=== PATIENT | male | born 2000 | race Caucasian/White ===

== ENCOUNTER 2023-09-03 16:50 | Outpatient (CLI) | payer BC, SELFPAY ==
[2023-09-03 17:37] LABS: Influenza A QL RT-PCR Positive (Negative); Influenza B QL RT-PCR Negative (Negative); RSV RNA, RT-PCR Negative (Negative); SARS-CoV-2 RNA PCR Negative (Negative)
== END 2023-09-03 16:51 | disposition home or self-care (01) ==
LOC: ANHLAB 16:51
PROVIDERS: PCP Family Medicine; Visit Provider Physician Assistant
DX: R50.9 Fever, unspecified (principal); Z20.822 Contact with and (suspected) exposure to COVID-19
CPT/HCPCS: 87637

== ENCOUNTER 2023-10-10 11:16 | Emergency (ER) | payer BC, SELFPAY ==
--- NOTE | ~2023-10-10 | CT_ITS ---
CT of the Pelvis: Indication: Perirectal abscess Technique: 2.5 mm axial scans were obtained through the pelvis following intravenous administration of 100 cc of Omnipaque 350. Dose reduction technique was used on this scan by utilizing automated exp osure control and iterative reconstruction technique. The dose-length product (DLP) was 1140.44 mGy-c m. Findings: Visualized bowel loops are unremarkable. No ascites. Urinary bladder unremarkable. Prostate gland and seminal vesicles are unremarkable. No lymphadenopathy seen. There is a left-sided perirectal/perianal abscess measuring approximately 4.4 x 2.8 x 3.2 cm. Impression: 4.4 x 2.8 x 3.2 cm left-sided perirectal/perianal abscess. Reviewed, dictated and finalized at [facility]. [employer] Impression: 4.4 x 2.8 x 3.2 cm left-sided perirectal/perianal abscess.
[2023-10-10 13:08] VITALS: BP 136/74; PULSE 95; RESP 16; TEMP 37; O2SAT 98
[2023-10-10 13:09] VITALS: BP 136/74; PULSE 103; RESP 20; O2SAT 98
[2023-10-10 13:35] LABS: Basophils Percent Auto 0.3 % (0.2-1.2); Eosinophils Absolute Auto 0.2 K/mm3 (0-0.3); Eosinophils Percent Auto 1.9 % (0-4.4); Hematocrit 40.2 % (42.0-52.0); Hemoglobin 13.4 g/dL (14.0-18.0); Immature Granulocyte Absolute 0.02 K/mm3 (0.00-0.031); Immature Granulocyte Percent A 0.2 % (0-0.5); Lymphocytes Absolute Auto 1.29 K/mm3 (0.9-3.2); Lymphocytes Percent Auto 12.9 % (18.3-44.2); Mean Corpuscular HGB Conc 33.3 g/dl (32-36); Mean Corpuscular Hemoglobin 29.6 pg (26-34); Mean Corpuscular Volume 88.9 fl (80-100); Mean Platelet Volume 9.9 fl (7.4-10.4); Monocytes Absolute Auto 1.2 K/mm3 (0.1-0.6); Monocytes Percent Auto 11.8 % (2.6-8.5); Neutrophils Absolute Auto 7.3 K/mm3 (1.3-6.7); Neutrophils Percent Auto 72.9 % (45.5-73.1); Platelet Count Result 282 k/mm3 (150-375); Red Blood Count 4.52 M/mm3 (4.6-6.20); Red Cell Distribution Width 11.3 % (11.5-14.5)
[2023-10-10 13:48] LABS: Alanine Aminotransferase 49 U/L (6-50); Albumin Level 4.3 g/dL (3.5-5.1); Alkaline Phosphatase 82 U/L (38-126); Anion Gap 9 mmol/L (8-16); Aspartate Amino Transferase 32 U/L (17-59); Bilirubin,Total 0.7 mg/dL (0.2-1.3); Blood Urea Nitrogen 15 mg/dL (9-20); Calcium 9.8 mg/dL (8.4-10.2); Carbon Dioxide 27 mmol/L (22-30); Chloride 103 mmol/L (98-107); Estimated CRCL calculation 192 ml/min; Estimated Glomerular Filt Rate > 60; Glucose 97 mg/dL (65-110); Potassium 3.9 mmol/L (3.4-5.0); Sodium 139 mmol/L (137-145)
--- NOTE | 2023-10-10 14:12 | PC.NURSE ---
Pt to CT scan via stretcher at this time.
--- NOTE | 2023-10-10 14:35 | ED.GENADULT ---
HPI - General Adult General Chief complaint: Skin/Abscess/Foreign Body Stated complaint: hemorrhoid internal Time Seen by Provider: 10/10/23 12:56 History of Present Illness HPI narrative: Patient is a 22-year-old male who presents ER with concerns for hemorrhoid or abscess. Began noticing pain after lifting heavy bag of concrete 9 days ago. It has since worsened. The discomfort moving to the left buttock and the perineal area. No drainage. No fevers or chills or sweats. No trauma to the area. His PCPs office initially thought he might have an external hemorrhoid and he been applying preparation H without improvement. Pain worsens when he sits down. Related Data Allergies Allergy/AdvReac Type Severity Reaction Status Date / Time magnesium Allergy Intermediate closes me Verified 10/06/23 13:54 up Review of Systems Review of Systems: All systems reviewed & are unremarkable except as noted in HPI and below Constitutional: Constitutional: Reports no additional constitutional complaints Cardiovascular: Cardiovascular: Reports no additional cardiovascular complaints Respiratory: Respiratory: Reports no additional respiratory complaints Gastrointestinal: Gastrointestinal: Reports no additional gastrointestinal complaints Genitourinary: Genitourinary: Reports no additional male genitourinary complaints [facility] Past Medical History Medical History Asthma History of OCD (obsessive compulsive disorder) Surgical History Surgical History [place] teeth extracted Family History Family History Father Diabetes mellitus Hypertension Social History Social History (Updated 10/06/23 @ 13:55 by Bharati Henning) Social History: Single Smoking status: Never smoker Second hand tobacco smoke exposure: No Alcohol intake: current Alcohol use details: rarely Substance use: never Substance use type: does not use Do You Feel Safe in your Home?: Yes Lack of Transportation: No Lack of Food: Never True Current Housing: I Have Housing Concerned About Future Housing: No Difficulty Paying Gas/Electric Bills: No Difficulty Paying for Meds: No Currently Unemployed: No Education: Don't Know Difficulty w/ Childcare or Family Care: No Living arrangements: with family Occupation/Education: occupation Gender identity (if verbalized by the patient): Male Sexual Orientation (if Verbalized by the Patient): Straight or Heterosexual Spiritual care concerns: No Exam Narrative: GENERAL: Well-appearing, well-nourished, and in no acute distress. HEAD: Normocephalic, atraumatic. ENT: Mucous membranes moist. CHEST: Clear to auscultation. No respiratory distress. HEART: Regular rate and rhythm. Normal peripheral pulses. ABDOMEN: Soft, nontender, nondistended. No hemorrhoid. Left gluteal and perineal fullness/induration without cellulitis. EXTREMITIES: Normal range of motion. No edema. SKIN: Warm, dry, no rash. NEURO: Alert and oriented x3. PSYCH: Normal mood and affect. Course Course Emergency Course: Patient resting comfortably. Informed of results. Discussed case with General surgery. Patient prefers to go home and have a procedure performed tomorrow in clinic. He will be started on oral medication for pain and infection. Discussed return precautions. Vital Signs Vital signs: Vital Signs Temperature 98.6 F 10/10/23 13:08 Pulse Rate 95 10/10/23 13:08 Respiratory Rate 16 10/10/23 13:08 Blood Pressure 136/74 10/10/23 13:08 Pulse Oximetry 98 10/10/23 13:08 Temperature 98.6 F 10/10/23 13:08 Pulse Rate 97 10/10/23 15:50 Respiratory Rate 14 10/10/23 15:50 Blood Pressure 137/85 10/10/23 15:50 Pulse Oximetry 97 10/10/23 15:50 Medical Decision Making Vital Signs Vital Signs:
[2023-10-10 15:50] VITALS: BP 137/85; PULSE 97; RESP 14; O2SAT 97
== END 2023-10-10 15:51 | disposition home or self-care (01) ==
PROVIDERS: Emergency Provider Emergency Medicine; PCP Family Medicine
DX: K61.0 Anal abscess (principal); J45.909 Unspecified asthma, uncomplicated; F42.9 Obsessive-compulsive disorder, unspecified
CPT/HCPCS: 36415; 72193; 80053; 85025; 99284; Q9967

== ENCOUNTER 2023-11-10 11:58 | Emergency (ER) | payer BC, SELFPAY ==
[2023-11-10 12:03] VITALS: BP 137/88; PULSE 57; RESP 18; TEMP 36.8; O2SAT 98
[2023-11-10] MEDS: TETANUS,DIPHTHERIA,AC PERTUSSIS ADULT (0.5 ML) BOOSTRIX IM (12:16)
--- NOTE | 2023-11-10 12:37 | ED.WOUNDLAC ---
HPI - Wound/Laceration General Chief Complaint: Wound/Laceration Stated Complaint: lac to L hand Time Seen by Provider: 11/10/23 12:01 Source: patient Mode of arrival: ambulatory Limitations: no limitations History of Present Illness HPI narrative: This is a 23-year-old male that presents to the emergency department for left hand laceration sustained just prior to arrival. Reports he was trying to open a box and accidentally cut himself with a experimental box tester. Reports bleeding and pain to the area. Unsure of his last tetanus vaccination. Denies decreased range of motion or numbness. Related Data Allergies Allergy/AdvReac Type Severity Reaction Status Date / Time magnesium Allergy Intermediate closes me Verified 11/10/23 12:20 up Review of Systems Review of Systems: CONSTITUTIONAL: Denies fever SKIN: Reports laceration NEUROLOGIC: Denies numbness All systems reviewed & are unremarkable except as noted in HPI and below PMFSH Past Medical History Medical History (Updated 11/10/23 @ 12:40 by Karen Browning PA-C) Asthma History of OCD (obsessive compulsive disorder) Surgical History Surgical History (Updated 10/21/23 @ 15:25 by Katie Lowry MA) History of incision and drainage I&D of danielle-rectal abscess 10/11 [facility] [place] teeth extracted Family History Family History Father Diabetes mellitus Hypertension Social History Social History Social History: Single Smoking status: Never smoker Second hand tobacco smoke exposure: No Alcohol intake: current Alcohol use details: rarely Substance use: never Substance use type: does not use Do You Feel Safe in your Home?: Yes Lack of Transportation: No Lack of Food: Never True Current Housing: I Have Housing Concerned About Future Housing: No Difficulty Paying Gas/Electric Bills: No Difficulty Paying for Meds: No Currently Unemployed: No Education: Don't Know Difficulty w/ Childcare or Family Care: No Living arrangements: with family Occupation/Education: occupation Gender identity (if verbalized by the patient): Male Sexual Orientation (if Verbalized by the Patient): Straight or Heterosexual Spiritual care concerns: No Exam Narrative: GENERAL: Well-appearing, well-nourished, and in no acute distress. HEAD: Normocephalic, atraumatic. EYES: EOMI. EXTREMITIES: Normal range of motion. No edema. Left hand palmar surface with 1.5 cm linear laceration into subcutaneous tissue SKIN: Warm, dry, no rash. NEURO: No focal deficits. Alert and oriented x3. PSYCH: Normal mood and affect Course Course Emergency Course: Patient educated on wound care Vital Signs Vital signs: Vital Signs Temperature 98.2 F 11/10/23 12:03 Pulse Rate 57 L 11/10/23 12:03 Respiratory Rate 18 11/10/23 12:03 Blood Pressure 137/88 11/10/23 12:03 Pulse Oximetry 98 11/10/23 12:03 Oxygen Delivery Room Air 11/10/23 12:03 Temperature 98.2 F 11/10/23 12:03 Pulse Rate 57 L 11/10/23 12:03 Respiratory Rate 18 11/10/23 12:03 Blood Pressure 137/88 11/10/23 12:03 Pulse Oximetry 98 11/10/23 12:03 Oxygen Delivery Room Air 11/10/23 12:03 Procedures Laceration Laceration 1: Date: 11/10/23 Time: 13:07 Site: hand Side (If applicable): left Size (cm): 1.5 Description: linear Depth: simple, single layer Local Anesthetic: lidocaine 1% and with epi Amount of anesthesia used (mL): 1 Pre-repair: wound explored and irrigated ====== Skin Level ====== Skin layer closed with: nylon Size (cm): 4-0 Number of sutures: 2 Technique: simple, interrupted ====== Subcutaneous Layer ====== ====== Muscle Layer ====== ====== Tendon Layer ====== MDM - Wound/Laceration MDM Narrative Medi
[2023-11-10] MEDS: LIDO 1%/EPINEPHRINE 1:100,000 20 ML VIAL 10 ML INFILTRATE (12:57)
== END 2023-11-10 13:16 | disposition home or self-care (01) ==
PROVIDERS: Emergency Provider Physician Assistant; PCP Family Medicine
DX: S61.412A Laceration without foreign body of left hand, initial encounter (principal); J45.909 Unspecified asthma, uncomplicated; Z23 Encounter for immunization; W26.8XXA Contact with other sharp object(s), not elsewhere classified, initial encounter
CPT/HCPCS: 12001; 90471; 90715; 99282